=== PATIENT | female | born 1940 | race Caucasian/White ===

== ENCOUNTER → 2022-06-23 | Outpatient (CLI) | payer MEDICARE, OTHER ==
[~2022-06-23] MED LIST: ACET-687 PO; CAPT1TAB8 PO; CELE200C PO; CITA40TA6 PO; DOCU100T6 PO; IBUP200T63 PO; LEVO125T6 PO; MULT-419 PO; OMEP20TA62 PO; RIVA10TA PO; SIMV20TA19 PO; TRAM50TA PO
--- NOTE | 2022-06-23 15:35 | DIREP ---
PROCEDURE:MRI - BRAIN WITHOUT CONTRAST COMPARISON:[facility], CT, CT HEAD BRAIN W/O CONTRAST, 10/23/2021, 05:36 PM. [facility], MR, MRI BRAIN W/WO, 02/21/2020, 09:04 AM. INDICATIONS:COGNITIVE DECLINE TECHNIQUE:A variety of imaging planes and parameters were utilized for visualization of suspected pathology in the brain. Images were performed without gadolinium contrast.. FINDINGS: CSF SPACES:Generalized prominence is again seen of the ventricles and sulci consistent with patient's age. CEREBRUM:Multiple small foci of abnormal T2 and FLAIR signal are seen in the periventricular white matter bilaterally. No mass, hemorrhage or restricted diffusion is seen. CEREBELLUM:No edema, hemorrhage, mass, acute infarction, or inappropriate atrophy. BRAINSTEM:No edema, hemorrhage, mass, acute infarction, or inappropriate atrophy. SKULL:No mass or other significant visible lesion. SINUSES:Limited views demonstrate no significant mucosal thickening or fluid. OTHER:None. CONCLUSION:Findings consistent with mild chronic small vessel ischemic changes in the periventricular white matter bilaterally. No mass, hemorrhage or acute infarct is seen. Dictated by: Jaime Pearson M.D. on 06/23/2022 at 03:28 PM
== END | disposition home or self-care (01) ==
LOC: RAD 13:20
PROVIDERS: ATTEND Nurse Practitioner Acute Care
DX: R41.89 Other symptoms and signs involving cognitive functions and awareness (principal)
CPT/HCPCS: 70551

== ENCOUNTER 2022-12-09 16:45 | Emergency (ER) | payer MEDICARE, OTHER ==
[~2022-12-09] VITALS: Ht 167.6 cm; Wt 65.3 kg
[2022-12-09 16:45] VITALS: BP 151/76
--- NOTE | 2022-12-09 16:45 | NUR ---
ARRIVAL PATIENT ARRIVED TO ED2 VIA GURNEY BY [facility], C/O POSSIBLE SEIZURE LIKE ACTIVITY TODAY, PATIENT FOUND ON THE FLOOR BY SON HAVING SEIZURE LIKE ACTIVITY AFTER BEING OUTSIDE, EMS CALLED AND FOUND PATIENT, INITIATED BILATERAL 20G IV TO THE RIGHT AND LEFT HAND, GAVE NORMAL SALINE BOLUS, VERSED 5MG IV,KETAMINE 150MG,VEC 8MG,FENTANYL 100MIC, AND STARTED A VERSED DRIP, INTUBATED PATIENT WITH A 7 EET 25 AT THE LIP LINE, BLOOD GLUCOSE 112, BROUGHT PATIENT TO THE ED FOR EVAL, RT [facility] CALLED, ASSISTED PATIENT TO ED EVELIO, VITAL SIGNS TAKEN AND DOCTOR IGNACIO ON THE ROOM AT THIS TIME.
--- NOTE | 2022-12-09 17:06 | PCM.EKG ---
[facility] Test Date: 2022-12-09 Test Time: 16:47:46 Pat Name: NATA RED Department: ER Room: Gender: Female Examiner Of Currency: [place] : 1940 Requested By: ULISSES PIERRE Order Number: [id number] Reading MD: Measurements Intervals Marcella Rate: 90 P: 37 WV: 155 QRS: -57 QRSD: 90 T: 20 QT: 392 QTc: 480 Interpretive Statements Sinus rhythm Abnormal R-wave progression, late transition Inferior infarct, old Please click the below link to view image of tracing.
[2022-12-09 17:20] LABS: BASOPHIL % 0.3 % (0.0-0.2); EOSINOPHIL % 0.1 % (0.0-5.0); LYMPHOCYTES # 0.81 10^3/uL1 (1.0-4.8); LYMPHOCYTES % 10.8 % (24.0-44.0); MEAN CORP HGB 33.3 pg (26-34); MONOCYTES # 0.5 10^3/uL (0.3-0.8); MONOCYTES % 6.1 % (5.0-12.0); NEUTROPHIL # 6.2 10^3/uL (1.8-7.7); NEUTROPHILS % 82.3 % (41.0-85.0); PLATELET COUNT 209 10^3/uL (150-400); RED CELL DISTRIBUTION WIDTH 11.7 % (11.5-14.5)
--- NOTE | 2022-12-09 17:28 | DIREP ---
PROCEDURE:CHEST 1 VIEW COMPARISON:[facility], CR, XRAY CHEST SINGLE VW, 10/23/2021, 06:02 PM. [facility], CR, XRAY CHEST SINGLE VW, 11/24/2016, 04:21 PM. INDICATIONS:intubation FINDINGS: LUNGS/PLEURA:Endotracheal tube, tip entering the right mainstem bronchus. This is called to emergency room at the time of dictation. No effusion. No pneumothorax. VASCULATURE:Normal. Unremarkable pulmonary vasculature. CARDIAC:Normal. No cardiac silhouette abnormality or cardiomegaly. MEDIASTINUM:Normal. No visible mass or adenopathy. BONES:Normal. No fracture or visible bony lesion. OTHER:Nasogastric tube, tip overlying the gastric bubble. Surgical changes with clips in the right axilla. CONCLUSION:Endotracheal tube, tip entering the right mainstem bronchus. Nasogastric tube appears well positioned. Dictated by: Marcus Lowe MD on 12/09/2022 at 05:23 PM
--- NOTE | 2022-12-09 17:30 | ER.PDOC ---
General Chief Complaint: Seizure Stated Complaint: SEIZURES Time seen by MD: 17:33 Source: EMS Exam Limitations: clinical condition History of Present Illness Timing/Onset/Duration: Unknown Duration, Status Epilepticus, Witnessed Preceding Symptoms/Context: activity prior to seizure Character Of Seizures: lost consciousness, completely Motor Activity: shaking all over Injury: head Prior symptoms/Treatment: Similar symptoms previous Allergies: Coded Allergies: No Known Allergies (Unverified , 08/08/13) Home Meds Reported Medications Celecoxib (CELEBREX) 200 Mg Capsule, 1 CAP PO BID, #60 CAP 2 Refills 08/26/14 Acetaminophen With Codeine (TYLENOL WITH CODEINE #4 TABLET) 1 Each Tablet, 1-2 EACH PO every 4-6 hours for PAIN, #30 TABLET 2 Refills 08/26/14 Rivaroxaban (XARELTO) 10 Mg Tablet, 1 TAB PO DAILY, #30 TAB 08/26/14 Docusate Sodium (STOOL SOFTENER) 100 Mg Tablet, 100 MG PO DAILY, TABLET 08/20/14 Omeprazole Magnesium (PRILOSEC OTC) 20 Mg Tablet.dr, 20 MG PO DAILY 08/20/14 Multivitamin (MULTIVITAMINS) 1 Each Tablet, 1 EACH PO DAILY, TABLET 10/10/13 Citalopram Hydrobromide (CITALOPRAM HBR) 40 Mg Tablet, 40 MG PO DAILY, TABLET 10/10/13 Levothyroxine Sodium (LEVOTHYROXINE SODIUM) 125 Mcg Tablet, 125 MCG PO DAILY, TABLET 10/10/13 Captopril/Hydrochlorothiazide (CAPTOPRIL-HCTZ 50-25 MG TABLET) 1 Each Tablet, 1 EACH PO DAILY, TABLET 10/10/13 Simvastatin (SIMVASTATIN) 20 Mg Tablet, 20 MG PO HS, TABLET 10/10/13 Past Medical History Medical History: cancer, cardiac problems, high cholesterol, hypertension, thyroid disease, other Surgical History: appendectomy, cancer surgery, hysterectomy, mastectomy Social History Alcohol Use: none Drug Use: none Reviewed Nursing Reviewed: Vital Signs, Abn. Noted Constitutional: no symptoms reported EENTM: no symptoms reported Respiratory: no symptoms reported Cardiovascular: no symptoms reported Gastrointestinal: no symptoms reported Musculoskeletal: no symptoms reported Skin: no symptoms reported All Other Systems: Reviewed and Negative Physical Exam General Appearance: confused (post-ictal) EENT: nml eye inspection, PERRL, no nystagmus, nml ENT inspection, no apparent, pharynx nml, no CSF leak Neck/Back: neck supple, non-tender Respiratory: no resp distress, breath sounds nml, no evidence of rib injury CVS: reg rate & rhythm, heart sounds nml Abdomen: non-tender, no organomegaly, no distention Skin: color nml, no rash, warm/dry Extremities: non-tender, nml ROM, no pedal edema Observed Seizure Activity: generalized, unresponsive Results/Orders Results/Orders Orders - ULISSES PIERRE MD EKG (12/09/22 16:54) Xr Chest 1v (12/09/22 16:54) Cbc With Auto Diff (12/09/22 16:54) Comprehensive Metabolic Panel (12/09/22 16:54) Creatine Kinase (12/09/22 16:54) Creatine Kinase Mb (12/09/22 16:54) Probnp B-Type Private Client Advisor (12/09/22 16:54) PT (12/09/22 16:54) Partial Thromboplastin Time. (12/09/22 16:54) Troponin I High Sensitivity (12/09/22 16:54) Lactic Acid(Ml) (12/09/22 16:54) Arterial Blood Gas (12/09/22 16:54) Ct Head Wo Contrast (12/09/22 16:54) Ct Cervical Spine (12/09/22 16:54) Place/Continue Ramsay Catheter (12/09/22 17:02) Ngt To Lis (12/09/22 17:02) Propofol/Pf (Diprivan) (12/09/22 17:47) Propofol/Pf (Diprivan) (12/09/22 18:00) Ammonia (12/09/22 18:21) Valproate (12/09/22 18:21) Vital Signs Date Time Temp Pulse Resp B/P (MAP) Pulse Ox O2 Delivery O2 Flow Rate FiO2 12/09/22 18:28 16 100 12/09/22 18:23 93 16 100 40 12/09/22 18:21 93 16 100 Ventilator+ 60 100 12/09/22 18:14 97.9 85 20 141/75 (97) 100 Ventilator+ 100 12/09/22 16:45 97.9 88 20 151/76 (101) 100 Ventilator+ 100 12/09/22 16:45 97.9 88 20 12/09/22 16:45 97.9 88 20 100 Laboratory Tests Test 12/09/22 17:10 12/09/22 17:13 White Blood Count 7.5 10^3/uL (4.5-11.0) Red Blood Count 4.30 10^6/uL (4.00-5.20) Hemoglobin 14.3 g/dL (12.0-15.0) Hematocrit 41.8 % (36.0-46.0) Mean Corpuscular Volume 97.2 fL (78-100) Mean Corpuscular Hemoglobin 33.3 pg (26-34) Mean Corpuscular Hemoglobin Concent 34.2 g/dL (33-36.5) Red Cell Distribution Width 11.7 % (11.5-14.5) Platelet Count 209 10^3/uL (150-400) Mean Platelet Volume 9.3 fL (7.8-11.0) Neutrophils (%) (Auto) 82.3 % (41.0-85.0) Lymphocytes (%) (Auto) 10.8 % (24.0-44.0) L Monocytes (%) (Auto) 6.1 % (5.0-12.0) Neutrophils # (Auto) 6.2 10^3/uL (1.8-7.7) Lymphocytes # (Auto) 0.81 10^3/uL1 (1.0-4.8) L Monocytes # (Auto) 0.5 10^3/uL (0.3-0.8) Absolute Immature Granulocyte (auto 0.03 10^3 u/L (0-2) Absolute Eosinophils (auto) 0.0 10^3/uL (0.0-0.2) Immature Granulocytes % 0.40 % (0.00-0.50) Eosinophils % 0.1 % (0.0-5.0) Basophils % 0.3 % (0.0-0.2) H Basophils # 0.0 10^3/uL (0.0-0.1) Prothrombin Time 10.3 SEC (9.7-11.6) INR 1.0 Activated Partial Thromboplast Time 22.7 SEC (22.5-33.1) Sodium Level 132 mmol/L (132-145) Potassium Level 4.2 mmol/L (3.6-5.2) Chloride Level 98.0 mmol/L (96-109) Carbon Dioxide Level 19.1 mmol/L (20.0-32) L Anion Gap 19.1 Blood Urea Nitrogen 20 mg/dL (7-18) H Creatinine 1.36 mg/dL (0.59-1.40) Estimated GFR () 45.2 (>/=60) Est GFR (CKD-EPI)(Non-Afr Brazilian) 37.3 (>/=60) BUN/Creatinine Ratio 14.0 (10.0-20.0) Glucose Level 139 mg/dL (70-110) H Lactic Acid Level 5.2 mmol/L (0.5-1.9) *H Calcium Level 8.2 mg/dL (8.4-10.5) L Total Bilirubin 0.5 mg/dL (0.2-1.0) Aspartate Amino Transferase (AST) 15 U/L (0-35) Alanine Aminotransferase (ALT) 14 U/L (12-78) Alkaline Phosphatase 64 U/L (50-136) Total Creatine Kinase 54 U/L (26-192) Creatine Kinase MB 1.6 ng/mL (0.5-3.6) Troponin I High Sensitivity 7 ng/L (0-50) Pro-B-Type Natriuretic Peptide 360 pg/mL (0-450) Total Protein 6.3 g/dL (6.4-8.2) L Albumin 3.6 g/dL (3.4-5.0) Globulin 2.7 Albumin/Globulin Ratio 1.333 Blood Gas Sample Site RT BRACIAL ARTERY Blood pH 7.393 (7.350-7.450) Blood Gas PCO2 27.1 mmHg (35.0-45.0) L Blood Gas PO2 444.6 mmHg (80.0-100.0) Blood Gas HCO3 16.1 mmol/L (22.0-26.0) L Blood Gas Base Excess -7.1 mmol/L (-2.0-2.0) L Seferino Test N/A Arterial Blood Oxygen Saturation 99.7 % (94.0-97.00) H Deoxyhemoglobin 0.3 % (0.0-5.0) Carboxyhemoglobin 1.4 % (0.0-3.9) Methemoglobin 0.4 % (0.00-5.0) Total Hemoglobin 14.3 % (12.0-17.8) Total Oxygen Concentration 20.9 % (13.5-17.5) H Blood Gas Temperature 37 Oxygen Delivery Method VENT Blood Gas Vent Mode AC Blood Gas Vent Rate 16 FiO2 100 % (20-101) Blood Gas Tidal Volume 450 ML Blood Gas PEEP 5.0 CMH2O Total Carbon Dioxide 17.0 mmol/L (23-27) L EKG/XRAY/CT/US EKG: NSR Consult/PCP Time Consult/PCP Called: 19:00 Consult/PCP: [facility] ER DEPART Departure Time of Disposition: 19:00 Disposition: 02 SHORT TERM HOSPITAL Impression: Primary Impression: Epilepsy Condition: Improved Referrals: PANCHO CASTANEDA MD (PCP) PRIMARY CARE PROVIDER Duration or Time Spent with Pa: 20M Critical Care Note Total Time (mins): 20 ULISSES PIERRE MD Dec 09, 2022 17:30
[2022-12-09 17:45] LABS: CARBON DIOXIDE 19.1 mmol/L (20.0-32)
[2022-12-09] MEDS ORDERED: DIPRIVAN 100 ML IV ONE (17:47)
--- NOTE | 2022-12-09 17:54 | NUR ---
CRITICAL LAB LACTIC 5.2, DOCTOR NOTIFIED
[2022-12-09] MEDS ORDERED: DIPRIVAN 100 ML IV PRN (18:00)
--- NOTE | 2022-12-09 18:10 | DIREP ---
PROCEDURE:CT HEAD OR BRAIN W/O CONTRAST COMPARISON:[facility], MR, MRI BRAIN W/O, 06/23/2022, 02:24 PM. [facility], CT, CT HEAD BRAIN W/O CONTRAST, 10/23/2021, 05:36 PM. [facility], CT, CT HEAD BRAIN W&W/O, 07/24/2021, 11:02 AM. INDICATIONS:fall TECHNIQUE:CT images were created without intravenous contrast. FINDINGS: VENTRICLES:The ventricles are normal in size and configuration. CEREBRUM:Small foci of diminished attenuation in the supratentorial white matter consistent with mild leukoaraiosis. CEREBELLUM:Negative. BRAINSTEM:Negative. BASAL CISTERNS:Negative. HEMORRHAGE (Vol L*W*H*.52):No MASS LESION:No ACUTE INFARCT:No SKULL:Normal. SINUSES:Normal. OTHER:None CONCLUSION:Mild chronic small vessel ischemic changes. No acute intracranial process. Dictated by: Joce Sharp M.D. on 12/09/2022 at 06:05 PM
[2022-12-09 18:14] VITALS: BP 141/75
[2022-12-09 18:15] LABS: ABG PCO2 27.1 mmHg (35.0-45.0); ABG PH 7.393 (7.350-7.450); BE(B) -7.1 mmol/L (-2.0-2.0); HCO3act 16.1 mmol/L (22.0-26.0); pO2 444.6 mmHg (80.0-100.0)
--- NOTE | 2022-12-09 18:23 | DIREP ---
PROCEDURE:CT SPINE CERVICAL W/O COMPARISON:None. INDICATIONS:fall TECHNIQUE:Multi-planar CT images of the cervical spine were obtained without IV contrast. FINDINGS: CRANIOCERVICAL AREA:Normal foramen magnum with no Chiari malformation. BONES:Normal vertebral body height. Mild anterior osteophyte formation throughout the cervical spine. ALIGNMENT:Normal. PARASPINAL AREA:Partially visualized endotracheal and enteric tubes. CERVICAL DISC LEVELS: C2-C3:Central posterior disc osteophyte complex. No neural foraminal narrowing. C3-C4:Mild bilateral facet arthrosis. Broad-based posterior disc osteophyte complex. Mild right neural foramina narrowing. C4-C5:Mild bilateral facet arthrosis. Broad-based posterior disc osteophyte complex. Moderate right neural foramina narrowing. C5-C6:Moderate bilateral facet arthrosis. Broad-based posterior disc osteophyte complex. Moderate right neural foraminal narrowing. C6-C7:Mild bilateral facet arthrosis. C7-T1:Moderate bilateral facet arthrosis. CONCLUSION:Multilevel degenerative and discogenic changes without acute bony abnormality. Mild right neural foramina narrowing at C3-4, moderate right neural from narrowing at C4-5 and C5-6. Dictated by: Joce Sharp M.D. on 12/09/2022 at 06:18 PM
--- NOTE | 2022-12-09 18:29 | NUR ---
AT 1745 - RT TO WITHDRAW ETT BY [address] PIERRE ORDER; RT TO REPEAT ORDER TO DR. PIERRE AND DR. PIERRE ACKNOWLEDGED ETT WAS AT 27 CM AT THE LIP AND RT TO WITHDRAW TO 25 CM AT THE LIP Addendum: 12/09/22 at 1834 by Carmen Davis RRT RT Amended: Links added.
[2022-12-09 18:42] VITALS: BP 126/71
--- NOTE | 2022-12-09 19:15 | NUR ---
Report called to [facility] ED to JAMES Hollingsworth
== END 2022-12-09 19:05 | disposition short-term general hospital (02) ==
LOC: ER 16:45 → EDUNIT# 16:45 → EDBD 16:45 → ER 19:05
DX: G40.909 Epilepsy, unspecified, not intractable, without status epilepticus (principal); E07.9 Disorder of thyroid, unspecified; E78.00 Pure hypercholesterolemia, unspecified; I10 Essential (primary) hypertension; Z85.9 Personal history of malignant neoplasm, unspecified; Z90.49 Acquired absence of other specified parts of digestive tract; Z90.710 Acquired absence of both cervix and uterus; Z79.890 Hormone replacement therapy
CPT/HCPCS: 36415; 36600; 70450; 71045; 72125; 80053; 80164; 82140; 82550; 82553; 82803; 83605; 83880; 84484; 85025; 85610; 85730; 93005; 94002; 96365; 99285